=== PATIENT | female | born 1945 | race Caucasian/White ===

== ENCOUNTER → 2024-03-09 13:14 | Outpatient (CLI) | payer MEDICARE, OTHER, SELFPAY ==
--- NOTE | 2024-03-09 13:17 | DI.US.S_ITS ---
PROCEDURE: US CAROTID DOPPLER BI INDICATIONS: OCCLUSION AND STENOSIS TECHNIQUE: Color and pulse Doppler interrogation was performed of both carotid systems, with image documentation and velocity measurements. COMPARISON: None. FINDINGS: Stenosis calculations are based on SRU ([employer] in [employer]) criteria. Right side: Brachial blood pressure: 143/77 mm Hg. Common carotid artery peak systolic velocity: 73 cm/sec. Internal carotid artery peak systolic velocity: 113 cm/sec. Internal carotid artery end diastolic velocity: 44 cm/sec. External carotid artery peak systolic velocity: 79 cm/sec. ICA/CCA peak systolic ratio: 1.5 . German scale imaging description: Mild degree of plaque involving the carotid bulb. Percent internal carotid artery stenosis: < 50% stenosis . Vertebral artery: Flow direction is antegrade. Left side: Brachial blood pressure: 147/80 mm Hg. Common carotid artery peak systolic velocity: 90 cm/sec. Internal carotid artery peak systolic velocity: 198 cm/sec. Internal carotid artery end diastolic velocity: 54 cm/sec. External carotid artery peak systolic velocity: 114 cm/sec. ICA/CCA peak systolic ratio: 2.2 . German scale imaging description: No significant plaque involving the left carotid artery. Percent internal carotid artery stenosis: < 50%. Elevated left internal carotid artery velocity and ICA/CCA ratio likely secondary to marked tortuosity of the vessel. Vertebral artery: Flow direction is antegrade. IMPRESSION: Right < 50% carotid artery stenosis. Normal appearing left carotid artery. Dictated by: Cy Wu M.D. on 03/09/2024 at 16:28 Approved by: Cy Wu M.D. on 03/09/2024 at 16:32
== END ==
PROVIDERS: PCP Internal Medicine; Referring Provider Otolaryngology; Visit Provider Otolaryngology
DX: I65.21 Occlusion and stenosis of right carotid artery (principal)
CPT/HCPCS: 93880